=== PATIENT | male | born 1935 | race Hispanic/Latino ===

== ENCOUNTER → 2019-06-24 | Outpatient (CLI) | payer OTHER, MEDICARE ==
[~2019-06-24] MED LIST: AEC81 PO; ESOM20CA31 PO; RECLAST INJ; REGADENOSON 0.4 MG/5 ML PF SYG IVP SCH; TAMS-1 GT
== END | disposition home or self-care (01) ==
LOC: SHCH 08:28
PROVIDERS: ATTEND Internal Medicine Cardiovascular Disease
DX: R07.9 Chest pain, unspecified (principal)
CPT/HCPCS: 78452; 93017; 96374; A9500 ×2; J2785

== ENCOUNTER → 2020-09-20 | Outpatient (CLI) | payer OTHER, MEDICARE ==
[~2020-09-20] MED LIST changes: -REGADENOSON 0.4 MG/5 ML PF SYG IVP SCH
== END | disposition home or self-care (01) ==
LOC: RAH 11:59
PROVIDERS: ATTEND Internal Medicine
DX: M17.11 Unilateral primary osteoarthritis, right knee (principal); M25.761 Osteophyte, right knee
CPT/HCPCS: 73562